=== PATIENT | female | born 1935 | race Caucasian/White ===

== ENCOUNTER 2016-12-22 06:53 | Emergency (ER) | payer MEDICARE ==
[~2016-12-22] VITALS: Ht 165.1 cm; Wt 62.0 kg
[~2016-12-22 06:53] MED LIST: ACET500C5 PO; GLYC113C TP; IBUP-1542 PO
[2016-12-22 06:57] VITALS: Ht 165.1 cm; Wt 62.0 kg
[2016-12-22 08:06] VITALS: BP 121/75; PULSE 84; RESP 21; TEMP 98.3
[2016-12-22 08:59] LABS: URINE BLOOD (Dip) POC 3+ (NEGATIVE)
--- NOTE | 2016-12-22 09:09 | ERD ---
ER Documentation Chief Complaint Date/Time DATE: 12/22/16 TIME: 09:07 Chief Complaint Complains of burning on urination since last night HPI This is an 81-year-old female who presents to the emergency department today with her complaining of burning and pain with urination that started last night. States that she has had some blood clots in her urine. Denies any vaginal bleeding, fevers or chills. ROS All systems reviewed and are negative except as per history of present illness. Medications Home Meds Active Scripts Acetaminophen* (Tylophen*) 500 Mg Capsule, 1 CAP PO Q6H Y for PAIN AND OR ELEVATED TEMP, #30 CAP Prov:HERNANDEZ LUND-Abhi 12/22/16 Cephalexin* (Keflex*) 500 Mg Capsule, 500 MG PO QID for 7 Days, CAP Prov:HERNANDEZ LUNDC 12/22/16 Acetaminophen* (Tylophen*) 500 Mg Capsule, 1 CAP PO Q6H Y for PAIN AND OR ELEVATED TEMP, #20 CAP Prov:JEREMIAH PAIGE I. LINING FOLDER 08/03/15 Ibuprofen* (Motrin*) 600 Mg Tab, 600 MG PO Q6, #20 TAB Prov:JEREMIAH PAIGE I. LINING FOLDER 05/24/15 Glycerin/Dimeth/Stearyl Alc (Cavilon Emollient Cream) 113 Ml Cream.ml., 113 ML TP BID for 30 Days Prov:JEREMIAH PAIGE I. LINING FOLDER 05/24/15 Allergies Allergies: Coded Allergies: No Known Allergy (Unverified , 08/03/15) PMhx/Soc History of Surgery: No Anesthesia Reaction: No Hx Neurological Disorder: No Hx Respiratory Disorders: No Hx Cardiac Disorders: Yes (hypertension, high cholesterol) Hx Psychiatric Problems: No Hx Miscellaneous Medical Probl: No Hx Alcohol Use: No Hx Substance Use: No Hx Tobacco Use: No Smoking Status: Never smoker Physical Exam Vitals Vital Signs Date Time Temp Pulse Resp B/P Pulse Ox O2 Delivery O2 Flow Rate FiO2 12/22/16 08:06 98.3 84 21 121/75 98 Room Air 12/22/16 06:57 97.8 65 20 102/52 96 Physical Exam Const: Sitting in wheelchair, no acute distress Head: Atraumatic Eyes: Normal Conjunctiva ENT: Normal External Ears, Nose and Mouth. Neck: Full range of motion..~ No meningismus. Resp: Clear to auscultation bilaterally Cardio: Regular rate and rhythm, no murmurs Abd: Soft, suprapubic tenderness non distended. Normal bowel sounds. No right lower quadrant pain. No left lower quadrant pain. Skin: No petechiae or rashes Back: No midline or flank tenderness Ext: No cyanosis, or edema Neur: Awake and alert Psych: Normal Mood and Affect Results 24 hrs Laboratory Tests Test 12/22/16 09:03 Bedside Urine pH (LAB) 5.5 Bedside Urine Protein (LAB) 3+ Bedside Urine Glucose (UA) Negative Bedside Urine Ketones (LAB) Negative Bedside Urine Blood 3+ Bedside Urine Nitrite (LAB) Positive Bedside Urine Leukocyte Esterase (L Trace Procedures/MDM This is an 81-year-old female who presents the emergency department today complaining of burning and pain with urination that started last night. Patient was asked multiple times if the blood clots were in her urine or coming from her vagina and she indicated they were in her urine. Patient had suprapubic pain on physical exam and had no other abdominal pain. Do not feel the patient requires further workup or imaging. Low suspicion for acute surgical abdomen. I did obtain a UA UA shows positive nitrates, trace leukocyte esterase and 3+ blood. Patient is afebrile and otherwise well-appearing. There is no CVA tenderness. Low suspicion for pyelonephritis however cannot rule out nephrolithiasis given the patient's hematuria Patient will be given a prescription for Keflex and Tylenol to treat her urinary tract infection. I explained this to both the patient and her . was concerned because she is supposed to have a dental extraction done this morning at 10 AM and he wanted to know if she should keep the appointment in her condition because "I have a friend who had diabetes and had his tooth removed and then he ". I have instructed the that should she not be feeling well she may reschedule her dental extraction providing that she does not have a dental abscess is the reason for tooth extraction. Patient was instructed to call her dentist for further instruction At this time the patient is stable for discharge and outpatient management. Patient should follow up with their PCP in the next 1-2 days. They may return to the emergency department sooner for any persistent or worsening of symptoms. Patient and understood and agreed with the plan. Departure Diagnosis: Primary Impression: UTI (urinary tract infection) Urinary tract infection type: site unspecified Hematuria presence: with hematuria Qualified Code: N39.0 - Urinary tract infection with hematuria, site unspecified Condition: HERNANDEZ Pisano PA-C Dec 22, 2016 09:09
[2016-12-22] MEDS ORDERED: ACET500C5 PO (09:11)
[2016-12-22] MEDS ORDERED: CEPH-443 PO (09:11)
[2016-12-23] MEDS ORDERED: CALC600T11 PO (00:13)
[2016-12-23] MEDS ORDERED: NIFE30TA60 PO (00:13)
[2016-12-23] MEDS ORDERED: IBUP200C PO (00:13)
[2016-12-23] MEDS ORDERED: CARB200T2 PO (00:13)
[2016-12-23] MEDS ORDERED: ASPI1CPM8 PO (00:13)
[2016-12-23] MEDS ORDERED: GABA300C16 PO (00:13)
[2016-12-23] MEDS ORDERED: PRAV10TA43 PO (00:13)
[2016-12-23] MEDS ORDERED: GABA100C14 PO (00:13)
[2016-12-23] MEDS ORDERED: LISI20TA11 PO (00:13)
[2016-12-23] MEDS ORDERED: PHEN-537 PO (01:38)
[2016-12-23] MEDS ORDERED: NITR-58 PO (01:38)
== END 2016-12-22 09:19 | disposition home or self-care (01) ==
LOC: FTE 06:53
DX: N39.0 Urinary tract infection, site not specified (principal); I10 Essential (primary) hypertension
CPT/HCPCS: 81003; 99283

== ENCOUNTER 2016-12-22 21:13 | Emergency (ER) | payer MEDICARE ==
[~2016-12-22] VITALS: Ht 162.6 cm; Wt 62.0 kg
[~2016-12-22 21:13] MED LIST changes: +CEPH-443 PO
[2016-12-22 21:15] VITALS: Ht 162.6 cm; Wt 62.0 kg
[2016-12-22 23:16] LABS: URINE BLOOD (Dip) POC 2+ (NEGATIVE)
[2016-12-22 23:59] LABS: ADD UMIC YES; UR ASCORBIC ACID 20 mg/dL (NEGATIVE); UR BACTERIA FEW /HPF (NONE SEEN); UR BILIRUBIN (Dip) NEGATIVE (NEGATIVE); UR BLOOD (Dip) 2+ mg/dL (NEGATIVE); UR CLARITY CLOUDY (CLEAR); UR COLOR YELLOW (YELLOW); UR GLUCOSE (Dip) NEGATIVE (NEGATIVE); UR KETONES (Dip) NEGATIVE (NEGATIVE); UR LEUKOCYTE ESTERASE (Dip) 3+ Leu/ul (NEGATIVE); UR NITRITE (Dip) NEGATIVE (NEGATIVE); UR RBC 59 /HPF (0-5); UR SPECIFIC GRAVITY (Dip) 1.029 (1.003-1.030); UR TOTAL PROTEIN (Dip) 2+ mg/dl (NEGATIVE); UR UROBILINOGEN (Dip) NEGATIVE (NEGATIVE)
[2016-12-23 00:03] VITALS: TEMP 98.3
[2016-12-23] MEDS ORDERED: CALC600T11 PO (00:13)
[2016-12-23] MEDS ORDERED: CARB200T2 PO (00:13)
[2016-12-23] MEDS ORDERED: GABA300C16 PO (00:13)
[2016-12-23] MEDS ORDERED: IBUP200C PO (00:13)
[2016-12-23] MEDS ORDERED: LISI20TA11 PO (00:13)
[2016-12-23] MEDS ORDERED: GABA100C14 PO (00:13)
[2016-12-23] MEDS ORDERED: NIFE30TA60 PO (00:13)
[2016-12-23] MEDS ORDERED: PRAV10TA43 PO (00:13)
[2016-12-23] MEDS ORDERED: ASPI1CPM8 PO (00:13)
[2016-12-23] MEDS ORDERED: NITR-58 PO (01:38)
[2016-12-23] MEDS ORDERED: PHEN-537 PO (01:38)
[2016-12-23 01:50] VITALS: BP 106/48; PULSE 59; RESP 20
--- NOTE | 2016-12-23 01:58 | ERD ---
ER Documentation Chief Complaint Date/Time DATE: 12/23/16 TIME: 01:54 Chief Complaint urine frequency today after taking cephalexin for urine infection HPI This 81-year-old female comes in to the emergency room for increased urinary frequency and mild burning on urination. She was seen yesterday and started on Keflex in the evening. She has taken 2 doses of Keflex but states that she has the same symptoms. She is having no fevers or chills. She is not weak and is still able to perform activities of daily living. She is a coming by her who states that there is son is a doctor and request that I call him. ROS All systems reviewed and are negative except as per history of present illness. Medications Home Meds Active Scripts Phenazopyridine Hcl* (Pyridium*) 100 Mg Tab, 100 MG PO TID Y for URINARY PAIN, # 8 TAB Prov:JOSÉ MIGUEL ESCALANTE DO 12/23/16 Nitrofurantoin Monohyd Macrocr* (Macrobid*) 100 Mg Capsr, 100 MG PO BID for 7 Days, CAP Prov:JOSÉ MIGUEL ESCALANTE DO 12/23/16 Reported Medications Ibuprofen* (Ibuprofen*) 200 Mg Capsule, 200 MG PO QID Y for PAIN, CAP 12/23/16 Calcium Carbonate* (Calcium Carbonate*) 600 MG Ca Tab, 600 MG PO, TAB 12/23/16 Carbamazepine (Epitol) 200 Mg Tablet, PO DAILY, TAB 12/23/16 Aspirin-Dipyridamole* (Aggrenox*) 25-200 Mg Cpmp.12hr, 1 CAP PO BID, CAP 12/23/16 Gabapentin* (Gabapentin*) 300 Mg Capsule, 300 MG PO QHS, #60 CAP 12/23/16 Gabapentin* (Gabapentin*) 100 Mg Capsule, 100 MG PO WITH BREAKFAST DINNE, #90 CAP 12/23/16 Nifedipine* (Nifedipine ER*) 30 Mg Tablet.sa, 30 MG PO DAILY, TAB.SA 12/23/16 Lisinopril* (Lisinopril*) 20 Mg Tablet, 20 MG PO BID, #30 TAB 12/23/16 Pravastatin Sodium* (Pravastatin Sodium*) 10 Mg Tablet, 10 MG PO HS, TAB 12/23/16 Discontinued Scripts Acetaminophen* (Tylophen*) 500 Mg Capsule, 1 CAP PO Q6H Y for PAIN AND OR ELEVATED TEMP, #30 CAP Prov:PROUSE,HERNANDEZ M. PA-C 12/22/16 Cephalexin* (Keflex*) 500 Mg Capsule, 500 MG PO QID for 7 Days, CAP Prov:HERNANDEZ LUND PA-C 12/22/16 Acetaminophen* (Tylophen*) 500 Mg Capsule, 1 CAP PO Q6H Y for PAIN AND OR ELEVATED TEMP, #20 CAP Prov:PAIGE,JEREMIAH I. ASSISTANT WAREHOUSE MANAGER 08/03/15 Ibuprofen* (Motrin*) 600 Mg Tab, 600 MG PO Q6, #20 TAB Prov:PAIGEJEREMIAH I. ASSISTANT WAREHOUSE MANAGER 05/24/15 Glycerin/Dimeth/Stearyl Alc (Cavilon Emollient Cream) 113 Ml Cream.ml., 113 ML TP BID for 30 Days Prov:PAIGEJEREMIAH I. ASSISTANT WAREHOUSE MANAGER 05/24/15 Allergies Allergies: Coded Allergies: No Known Allergy (Unverified , 12/22/16) PMhx/Soc History of Surgery: No Anesthesia Reaction: No Hx Neurological Disorder: No Hx Respiratory Disorders: No Hx Cardiac Disorders: Yes (hypertension, high cholesterol) Hx Psychiatric Problems: No Hx Miscellaneous Medical Probl: No Hx Alcohol Use: No Hx Substance Use: No Hx Tobacco Use: No Smoking Status: Never smoker Physical Exam Vitals Vital Signs Date Time Temp Pulse Resp B/P Pulse Ox O2 Delivery O2 Flow Rate FiO2 12/23/16 01:50 59 20 106/48 95 Room Air 12/23/16 00:03 98.3 61 20 130/48 99 Room Air 12/22/16 21:15 98.3 88 20 116/55 99 Physical Exam Const: [] No distress Head: Atraumatic Eyes: Normal Conjunctiva ENT: Normal External Ears, Nose and Mouth. Neck: Full range of motion..~ No meningismus. Resp: Clear to auscultation bilaterally Cardio: Regular rate and rhythm, no murmurs Abd: Soft, very mild suprapubic tenderness, non distended. Normal bowel sounds Skin: No petechiae or rashes Back: No midline or flank tenderness Ext: No cyanosis, or edema Neur: Awake and alert and oriented 3, no focal deficits Psych: Normal Mood and Affect Results 24 hrs Laboratory Tests Test 12/22/16 23:13 12/22/16 23:19 Urine Color YELLOW Urine Clarity CLOUDY Urine pH 5.0 Urine Specific [place] 1.029 Urine Ketones NEGATIVEmg/dL Urine Nitrite NEGATIVEmg/dL Urine Bilirubin NEGATIVEmg/dL Urine Urobilinogen NEGATIVEmg/dL Urine Leukocyte Esterase 3+Bao/ul Urine Microscopic RBC 59/HPF Urine Microscopic WBC > 182/HPF Urine Bacteria FEW/HPF Urine Hyaline Casts FEW/HPF Urine Hemoglobin 2+mg/dL Urine Glucose NEGATIVEmg/dL Urine Total Protein 2+mg/dl Bedside Urine pH (LAB) 5.5 Bedside Urine Protein (LAB) 2+ Bedside Urine Glucose (UA) Negative Bedside Urine Ketones (LAB) Trace Bedside Urine Blood 2+ Bedside Urine Nitrite (LAB) Negative Bedside Urine Leukocyte Esterase (L 1+ Procedures/MDM Elderly female with urinary tract infection. Has not quite had time to consider failure of outpatient treatment. Significant UTI or patient has normal vital signs and has only localized symptoms. Performed a complete physical exam due to patient's age. Am going to discharge her with Macrobid and told her to continue her Keflex. Also discharging with Pyridium. I did call and speak with the patient's son who is also a physician. Updated her on the case. Urine culture is obtained. This is a complicated urinary tract infection considering the patient's age. No signs of sepsis p. Return precautions to the ER also given peer Departure Diagnosis: Primary Impression: Complicated UTI (urinary tract infection) Condition: Stable Patient Instructions: Understanding Urinary Tract Infections (UTIs) Additional Instructions: Llame al doctor MAANA y priya elba CORINNA PARA DENTRO DE 2-3 DOBBINS.Dgale a la secretaria que nosotros le instruimos hacer esta corinna.Avise o llame si cross condicin se empeora antes de la corinna. Regresa aqui si peor o no mejor. JOSÉ MIGUEL ESCALANTE DO Dec 23, 2016 01:57
== END 2016-12-23 01:51 | disposition home or self-care (01) ==
LOC: E/R 21:13
DX: N39.0 Urinary tract infection, site not specified (principal); I10 Essential (primary) hypertension; Z79.82 Long term (current) use of aspirin
CPT/HCPCS: 81001; 81003; 87086; 99283

== ENCOUNTER 2018-01-09 14:06 | Emergency (ER) | END 2018-01-09 19:40 | disposition home or self-care (01) ==

== ENCOUNTER 2019-01-09 16:08 | Emergency (ER) | payer MEDICARE ==
[~2019-01-09] VITALS: Ht 149.9 cm; Wt 57.6 kg
[~2019-01-09 16:08] MED LIST changes: -ACET500C5 PO; +ASPI1CPM8 PO; +CALC600T24 PO; +CARB200T2 PO; -CEPH-443 PO; +CIPR500T4 PO; +GABA100C14 PO; +GABA300C16 PO; -GLYC113C TP; -IBUP-1542 PO; +IBUP-1982 PO; +LISI-471 PO; +NIFE30TA23 PO; +NITR-58 PO; +PHEN-537 PO; +PRAV10TA43 PO
[2019-01-09 16:35] VITALS: BP 114/54; PULSE 68; RESP 18; Ht 149.9 cm; Wt 57.6 kg
[2019-01-09] MEDS ORDERED: CEPH-443 PO (17:13)
--- NOTE | 2019-01-09 17:14 | ERD ---
ER Documentation Chief Complaint Chief Complaint frequency of urination , painful urination , onset today HPI 83-year-old female presents the ED feeling like she has a UTI x1 day. She repo rts that she has severely increased urination without any blood in her urine. She reports burning sensation when she urinates. She denies any altered mental status, abdominal pain, fevers, low back pain. She states that this feels typical for her when she has a UTI. She states that nothing makes her symptoms better worse. Past medical history: Urinary incontinence, hypertension, peripheral artery disease surgery, stroke 10 years ago Patient denies allergies ROS All systems reviewed and are negative except as per history of present illness. Medications Home Meds Active Scripts Cephalexin* (Keflex*) 500 Mg Capsule, 500 MG PO BID for 7 Days, CAP Prov:DA MYLES PA-C 01/09/19 Phenazopyridine Hcl* (Pyridium*) 100 Mg Tab, 100 MG PO TID PRN for URINARY PAIN, #8 TAB Prov:AUSTIN WILLIS PA-C 01/09/18 Ciprofloxacin Hcl* (Ciprofloxacin Hcl*) 500 Mg Tablet, 500 MG PO BID for 10 Days, TAB Prov:AUSTIN WILLIS PA-C 01/09/18 Phenazopyridine Hcl* (Pyridium*) 100 Mg Tab, 100 MG PO TID PRN for URINARY PAIN, #8 TAB Prov:JOSÉ MIGUEL ESCALANTE DO 12/23/16 Nitrofurantoin Monohyd Macrocr* (Macrobid*) 100 Mg Capsr, 100 MG PO BID for 7 Days, CAP Prov:JOSÉ MIGUEL ESCALANTE DO 12/23/16 Reported Medications Ibuprofen* (Ibuprofen*) 200 Mg Capsule, 200 MG PO QID PRN for PAIN, CAP 12/23/16 Calcium Carbonate* (Calcium Carbonate*) 600 MG Ca Tab, 600 MG PO, TAB 12/23/16 Carbamazepine (Epitol) 200 Mg Tablet, PO DAILY, TAB 12/23/16 Aspirin-Dipyridamole* (Aggrenox*) 25-200 Mg Cpmp.12hr, 1 CAP PO BID, CAP 12/23/16 Gabapentin* (Gabapentin*) 300 Mg Capsule, 300 MG PO QHS, #60 CAP 12/23/16 Gabapentin* (Gabapentin*) 100 Mg Capsule, 100 MG PO WITH BREAKFAST DINNE, #90 CA P 12/23/16 Nifedipine* (Nifedipine ER*) 30 Mg Tablet.sa, 30 MG PO DAILY, TAB.SA 12/23/16 Lisinopril* (Lisinopril*) 20 Mg Tablet, 20 MG PO BID, #30 TAB 12/23/16 Pravastatin Sodium* (Pravastatin Sodium*) 10 Mg Tablet, 10 MG PO HS, TAB 12/23/16 Allergies Allergies: Coded Allergies: No Known Allergy (Unverified , 12/22/16) PMhx/Soc History of Surgery: Yes (Right leg vein sx) Anesthesia Reaction: No Hx Neurological Disorder: No Hx Respiratory Disorders: No Hx Cardiac Disorders: Yes (hypertension, high cholesterol,hx stroke) Hx Psychiatric Problems: No Hx Miscellaneous Medical Probl: Yes (urinary incontinence) Hx Alcohol Use: No Hx Substance Use: No Hx Tobacco Use: No Smoking Status: Never smoker FmHx Family History: No diabetes Physical Exam Vitals Vital Signs Date Temp Pulse Resp B/P (MAP) Pulse Ox O2 O2 Flow FiO2 Time Delivery Rate 01/09/19 97.7 68 18 114/54 98 16:35 (74) Physical Exam Const: No acute distress Head: Atraumatic Eyes: Normal Conjunctiva ENT: Normal External Ears, Nose and Mouth. Neck: Full range of motion. No meningismus. Resp: Clear to auscultation bilaterally Cardio: Regular rate and rhythm, no murmurs Abd: Soft, slight tenderness to the suprapubic region, non distended. Normal bowel sounds Skin: No petechiae or rashes Back: No midline or flank tenderness Ext: No cyanosis, or edema Neur: Awake and alert Psych: Normal Mood and Affect Results 24 hrs Laboratory Tests Test 01/09/19 16:50 Urine Color YELLOW Urine Clarity CLOUDY Urine pH 8.0 Urine Specific [place] 1.018 Urine Ketones NEGATIVE mg/dL Urine Nitrite NEGATIVE mg/dL Urine Bilirubin NEGATIVE mg/dL Urine Urobilinogen NEGATIVE mg/dL Urine Leukocyte Esterase 2+ Bao/ul Urine Microscopic RBC 3 /HPF Urine Microscopic WBC 97 /HPF Urine Squamous Epithelial Cells FEW /HPF Urine Bacteria FEW /HPF Urine Hemoglobin NEGATIVE mg/dL Urine Glucose NEGATIVE mg/dL Urine Total Protein NEGATIVE mg/dl Procedures/MDM ED COURSE: The patient was stable throughout ED course. I kept the patient informed of laboratory and diagnostic imaging results throughout the ED course. MEDICATIONS GIVEN: [None.] MEDICAL DECISION MAKING: Patient is a 83-year-old female complaining of UTI symptoms. She states that she has increased urination all day. She states that this feels like a typical UTI for her. Urinalysis was done showing 2+ leukocyte esterase. Physical exam was unremarkable except slight suprapubic tenderness. This patient presents to the ED with symptoms consistent with a urinary tract infection. Considering the patient history and physical during exam, other differential diagnosis that were considered include acute pyelonephritis, bladder cancer, chlamydial genitourinary infections, herpes simplex, interstitial cystitis, PID, uret hrtitis, vaginitis. Vital signs were reviewed. Patient is afebrile. Patient was not hypoxic. Patient was hemodynamically stable. Patient was told to follow up with primary care for further care and management. PRESCRIPTION: keflex DISCHARGE: At this time, patient is stable for discharge and outpatient management. I have instructed the patient to follow-up with his/her primary care physician in 1-2 days. I have discussed with the patient the possibility of needing to see a specialist for further workup and imaging studies if symptoms persist. I have instructed the patient to promptly return to the ER for any new or worsening sym ptoms including increased pain, fever, nausea, vomiting, weakness or LOC. The patient expressed understanding of and agreement with this plan. All questions were answered. Home care instructions were provided. Disclaimer: Inadvertent spelling and grammatical errors are likely due to EHR/dictation software use and do not reflect on the overall quality of patient care. Also, please note that the electronic time recorded on this note does not necessarily reflect the actual time of the patient encounter. Departure Diagnosis: Primary Impression: UTI (urinary tract infection) Urinary tract infection type: acute cystitis Hematuria presence: without hematuria Qualified Codes: N30.00 - Acute cystitis without hematuria Condition: Fair Patient Instructions: Understanding Urinary Tract Infections (UTIs) Referrals: COMM[facility]ITY [facility] YOU HAVE RECEIVED A MEDICAL SCREENING EXAM AND THE RESULTS INDICATE THAT YOU DO NOT HAVE A CONDITION THAT REQUIRES URGENT TREATMENT IN THE EMERGENCY DEPARTMENT. FURTHER EVALUATION AND TREATMENT OF YOUR CONDITION CAN WAIT UNTIL YOU ARE SEEN IN YOUR DOCTORS OFFICE WITHIN THE NEXT 1-2 DAYS. IT IS YOUR RESPONSIBILITY TO MAKE AN APPOINTMENT FOR FOLOW-UP CARE. IF YOU HAVE A PRIMARY DOCTOR --you should call your primary doctor and schedule an appointment IF YOU DO NOT HAVE A PRIMARY DOCTOR YOU CAN CALL OUR PHYSICIAN REFERRAL HOTLINE AT IF YOU CAN NOT AFFORD TO SEE A PHYSICIAN YOU CAN CHOSE FROM THE FOLLOWING [facility] [id number] [facility] [address] [facility] [address] [facility] [address] [facility] [address] [facility]. [facility] [address] [facility]. [facility] YOU HAVE RECEIVED A MEDICAL SCREENING EXAM AND THE RESULTS INDICATE THAT YOU DO NOT HAVE A CONDITION THAT REQUIRES URGENT TREATMENT IN THE EMERGENCY DEPARTMENT. FURTHER EVALUATION AND TREATMENT OF YOUR CONDITION CAN WAIT UNTIL YOU ARE SEEN IN YOUR DOCTORS OFFICE WITHIN THE NEXT 1-2 DAYS. IT IS YOUR RESPONSIBILITY TO MAKE AN APPOINTMENT FOR FOLOW-UP CARE. IF YOU HAVE A PRIMARY DOCTOR --you should call your primary doctor and schedule and appointment IF YOU DO NOT HAVE A PRIMARY DOCTOR YOU CAN CALL OUR PHYSICIAN REFERRAL HOTLINE AT . IF YOU CAN NOT AFFORD TO SEE A PHYSICIAN YOU CAN CHOSE FROM THE FOLLOWING [facility]: [facility] [address] [place] [address] [facility] [address] [place] [address] [facility] [address] [place] [address] Additional Instructions: Llame al doctor MAANA y priya elba CORINNA PARA DENTRO DE 1-2 DOBBINS.Dgale a la secretaria que nosotros le instruimos hacer esta corinna.Avise o llame si cross condicin se empeora antes de la corinna. Regresa aqui si peor o no mejor. Comments patient evaluated with PA, agree with assessment and plan DA Fofana PA-C Jan 09, 2019 17:14 AMBERLY CUETO DO Jan 12, 2019 20:10
== END 2019-01-09 17:28 | disposition home or self-care (01) ==
LOC: FTE 16:08
DX: N30.00 Acute cystitis without hematuria (principal); I10 Essential (primary) hypertension; Z79.82 Long term (current) use of aspirin; Z86.73 Personal history of transient ischemic attack (TIA), and cerebral infarction without residual deficits
CPT/HCPCS: 81001; 87086; 99283

== ENCOUNTER 2019-01-19 15:24 | Emergency (ER) | payer MEDICARE ==
[~2019-01-19] VITALS: Ht 152.4 cm; Wt 58.1 kg
[~2019-01-19 15:24] MED LIST changes: +CEPH-443 PO
[2019-01-19 15:41] VITALS: BP 138/63; PULSE 68; RESP 20; Ht 152.4 cm; Wt 58.1 kg
[2019-01-19] MEDS ORDERED: NITROFURANTOIN (SR) 100 MG CAP PO ONE (17:00)
[2019-01-19] MEDS ORDERED: NITR-58 PO (17:02)
--- NOTE | 2019-01-19 17:08 | ERD ---
ER Documentation Chief Complaint Chief Complaint c/o frequent urination started this AM. BS: 176. HPI 83-year-old female presents with frequent urination of the last several days. She was treated last week with Keflex. She denies fevers, vomiting, abdominal pain. Blood sugar triage is 175. ROS All systems reviewed and are negative except as per history of present illness. Medications Home Meds Active Scripts Nitrofurantoin Monohyd Macrocr* (Macrobid*) 100 Mg Capsr, 100 MG PO BID for 7 Days, CAP Prov:FREDY REYNA MD 01/19/19 Cephalexin* (Keflex*) 500 Mg Capsule, 500 MG PO BID for 7 Days, CAP Prov:DA MYLES PA-C 01/09/19 Phenazopyridine Hcl* (Pyridium*) 100 Mg Tab, 100 MG PO TID PRN for URINARY PAIN, #8 TAB Prov:AUSTIN WILLIS PA-C 01/09/18 Ciprofloxacin Hcl* (Ciprofloxacin Hcl*) 500 Mg Tablet, 500 MG PO BID for 10 Days, TAB Prov:AUSTIN WILLIS 01/09/18 Phenazopyridine Hcl* (Pyridium*) 100 Mg Tab, 100 MG PO TID PRN for URINARY PAIN, #8 TAB Prov:JOSÉ MIGUEL ESCALANTE DO 12/23/16 Nitrofurantoin Monohyd Macrocr* (Macrobid*) 100 Mg Capsr, 100 MG PO BID for 7 Days, CAP Prov:JOSÉ MIGUEL ESCALANTE DO 12/23/16 Reported Medications Ibuprofen* (Ibuprofen*) 200 Mg Capsule, 200 MG PO QID PRN for PAIN, CAP 12/23/16 Calcium Carbonate* (Calcium Carbonate*) 600 MG Ca Tab, 600 MG PO, TAB 12/23/16 Carbamazepine (Epitol) 200 Mg Tablet, PO DAILY, TAB 12/23/16 Aspirin-Dipyridamole* (Aggrenox*) 25-200 Mg Cpmp.12hr, 1 CAP PO BID, CAP 12/23/16 Gabapentin* (Gabapentin*) 300 Mg Capsule, 300 MG PO QHS, #60 CAP 12/23/16 Gabapentin* (Gabapentin*) 100 Mg Capsule, 100 MG PO WITH BREAKFAST DINNE, #90 CAP 12/23/16 Nifedipine* (Nifedipine ER*) 30 Mg Tablet.sa, 30 MG PO DAILY, TAB.SA 12/23/16 Lisinopril* (Lisinopril*) 20 Mg Tablet, 20 MG PO BID, #30 TAB 12/23/16 Pravastatin Sodium* (Pravastatin Sodium*) 10 Mg Tablet, 10 MG PO HS, TAB 12/23/16 Allergies Allergies: Coded Allergies: No Known Allergy (Unverified , 12/22/16) PMhx/Soc History of Surgery: Yes (Right leg vein sx) Anesthesia Reaction: No Hx Neurological Disorder: No Hx Respiratory Disorders: No Hx Cardiac Disorders: Yes (hypertension, high cholesterol,hx stroke) Hx Psychiatric Problems: No Hx Miscellaneous Medical Probl: Yes (urinary incontinence) Hx Alcohol Use: No Hx Substance Use: No Hx Tobacco Use: No Smoking Status: Never smoker FmHx Family History: No diabetes, No coronary disease, No other Physical Exam Vitals Vital Signs Date Temp Pulse Resp B/P (MAP) Pulse Ox O2 O2 Flow FiO2 Time Delivery Rate 01/19/19 97.7 68 20 138/63 97 15:41 (88) Physical Exam Const: No acute distress Head: Atraumatic Eyes: Normal Conjunctiva ENT: Normal External Ears, Nose and Mouth. Neck: Full range of motion. No meningismus. Resp: Clear to auscultation bilaterally Cardio: Regular rate and rhythm, no murmurs Abd: Soft, non tender, non distended. Normal bowel sounds Skin: No petechiae or rashes Back: No midline or flank tenderness Ext: No cyanosis, or edema Neur: Awake and alert Psych: Normal Mood and Affect Results 24 hrs Laboratory Tests Test 01/19/19 15:38 01/19/19 16:05 Bedside Glucose 176 mg/dL Urine Color YELLOW Urine Clarity CLOUDY Urine pH 5.0 Urine Specific [place] 1.021 Urine Ketones NEGATIVE mg/dL Urine Nitrite NEGATIVE mg/dL Urine Bilirubin NEGATIVE mg/dL Urine Urobilinogen NEGATIVE mg/dL Urine Leukocyte Esterase 3+ Bao/ul Urine Microscopic RBC 31 /HPF Urine Microscopic WBC > 182 /HPF Urine Squamous Epithelial Cells FEW /HPF Urine Bacteria FEW /HPF Urine Mucus MODERATE /HPF Urine Hemoglobin 1+ mg/dL Urine Glucose NEGATIVE mg/dL Urine Total Protein 1+ mg/dl Current Medications Medications Dose Sig/Monisha Start Time Status Last (Trade) Ordered Route PRN Stop Time Admin Dose Reason Admin 100 mg ONCE ONCE 01/19/19 DC Nitrofurantoi PO 17:00 n 01/19/19 17:01 Macrocrystals (Macrobid) Procedures/MDM Urine shows white blood cells and leukocyte esterase without glucose, nitrites, ketones. Patient presents with signs and symptoms of frequent urination and signs of UTI. Urine sent for culture given previous treatment last week. Will treat with Macrobid, return precautions for fevers, vomiting or abdominal pain. She does not meet SIRS criteria. The patient was stable with no new complaints during the ER course. Clinically, there is no current evidence to suggest meningitis, sepsis, acute abdomen, pneumonia, stroke, acute coronary syndrome, pulmonary embolism, aortic dissection or any other emergent condition appearing to require further evaluation or hospitalization. Patient counseled regarding my diagnostic impression and care plan. Prior to discharge all questions answered. Pt agrees with treatment plan and understands strict return precautions. Pt is instructed to follow up with primary care provider within 24- 48 hours. Precautionary instructions provided including instructions to return to the ER if not improving or for any worsening or changing symptoms or concerns. Disclaimer: Inadvertent spelling and grammatical errors are likely due to EHR/dictation software use and do not reflect on the overall quality of patient care. Also, please note that the electronic time recorded on this note does not necessarily reflect the actual time of the patient encounter. Departure Diagnosis: Primary Impression: UTI (urinary tract infection) Urinary tract infection type: acute cystitis Hematuria presence: without hematuria Qualified Codes: N30.00 - Acute cystitis without hematuria Condition: Stable Patient Instructions: Understanding Urinary Tract Infections (UTIs) Additional Instructions: hay infeccion en orina . vamos a cambiar la medicina. Cheque otro vez con cross doctor primario en el proximo kelly or regresa para mas o nueva simptomas- jamaal moon. FREDY REYNA MD Jan 19, 2019 17:08
== END 2019-01-19 17:30 | disposition home or self-care (01) ==
LOC: FTE 15:24
DX: N39.0 Urinary tract infection, site not specified (principal); I10 Essential (primary) hypertension; Z86.73 Personal history of transient ischemic attack (TIA), and cerebral infarction without residual deficits; Z79.82 Long term (current) use of aspirin
CPT/HCPCS: 81001; 82962; 87086; 99283